=== PATIENT | female | born 2000 | race Caucasian/White ===

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

== ENCOUNTER 2024-03-27 18:52 | Emergency (ER) | payer MEDICAID, OTHER ==
[~2024-03-27] VITALS: Ht 154.9 cm; Wt 65.9 kg
[~2024-03-27 18:52] MED LIST: PEDI1TAB16 PO
[2024-03-27 19:09] VITALS: BP 135/60; PULSE 82; RESP 18; TEMP 98.3; O2SAT 98
[2024-03-27 19:53] LABS: BASOPHILS % (AUTO) 0.4 % (0.0-2.0); EOSINOPHILS % (AUTO) 1.8 % (1.0-6.0); HEMATOCRIT 38.2 % (36-46); LYMPHOCYTES # (AUTO) 2.4 K/uL (1.0-4.8); LYMPHOCYTES % (AUTO) 26.8 % (22.0-44.0); MEAN CORPUSCULAR HEMOGLOBIN 31.5 pg (26.0-34.0); MEAN CORPUSCULAR HGB CONC 34.1 G/dL (31.0-37.0); MEAN CORPUSCULAR VOLUME 92 fL (80-100); MONOCYTES # (AUTO) 0.5 K/uL (0.1-1.0); MONOCYTES % (AUTO) 5.8 % (2.0-9.0); NEUTROPHILS # (AUTO) 5.7 K/uL (1.8-7.7); NEUTROPHILS % (AUTO) 65.2 % (40.0-70.0); PLATELET COUNT (AUTO) 246 K/uL (150-450); RED BLOOD CELL COUNT(AUTO) 4.14 MIL/uL (4.00-5.20); RED CELL DISTRIBUTION WIDTH 13.7 % (11.5-14.5); WHITE BLOOD COUNT (AUTO) 8.8 K/uL (4.5-11.0)
[2024-03-27 20:04] LABS: ANION GAP 4 mmol/L (8-16); CALCIUM, TOTAL 8.5 mg/dL (8.8-10.5); CARBON DIOXIDE 30 mmol/L (22-29); CHLORIDE 104 mmol/L (98-107); CREATININE 0.71 mg/dL (0.60-1.30); GLOMERULAR FILTR. RATE CALC > 60 mL/min (>60); GLUCOSE,RANDOM 101 mg/dL (70-110); POTASSIUM 4.1 mmol/L (3.5-5.1); SODIUM SERUM 138 mmol/L (136-145); UREA NITROGEN, BLOOD 10 mg/dL (7-18)
[2024-03-27] MEDS ORDERED: BACI28.410 TP (22:07)
[2024-03-27] MEDS ORDERED: ACET-66 PO (22:07)
[2024-03-27] MEDS ORDERED: CEPH-558 PO (22:07)
[2024-03-27] MEDS ORDERED: DOXY-354 PO (22:07)
[2024-03-27] MEDS: ACETAMINOPHEN 500 MG TABLET PO ONE (22:22)
[2024-03-27] MEDS: DOXYCYCLINE HYCLATE 100 MG TABLET PO ONE (22:22)
[2024-03-27] MEDS: CEPHALEXIN MONOHYDRATE 500 MG CAPSULE PO ONE (22:22)
== END 2024-03-27 22:38 | disposition home or self-care (01) ==
LOC: EMS 18:52
DX: L73.9 Follicular disorder, unspecified (principal)
CPT/HCPCS: 80048; 85025; 99284